=== PATIENT | female | born 1990 | race Caucasian/White ===

== ENCOUNTER → 2019-09-12 14:19 | Outpatient (CLI) | payer OTHER, MEDICAID, SELFPAY ==
--- NOTE | 2019-09-12 | DI.US.S_ITS ---
PROCEDURE: US OB >= 14 WEEKS FETUS INDICATIONS: 20 WEEK ANATOMY SCAN OUTSIDE/PRIOR DATING DATA: Last menstrual period (LMP): 04/12/19. LMP-based estimated date of delivery (SELMA): 01/17/20. First dating scan (date and location): 09/12/19. Estimated date of delivery (SELMA) from first dating scan: 01/13/20. TECHNIQUE: Real-time scanning was performed of the fetus, with image documentation and biometric measurements. COMPARISON: None. FINDINGS: General: A single living intrauterine gestation is present. Presentation: Variable Placenta: Placental position is anterior, without previa. Amniotic fluid index: 17.4 cm, normal range is 5-24 cm. heart rate: 158 beats per minute. Maternal cervical canal: 4.8 cm, closed. biometrics: Biparietal diameter: 5.6 cm, 23 weeks 0 days Head circumference: 20.7 cm, 22 weeks 5 days Abdominal circumference: 17.5 cm, 22 weeks 3 days Femur length: 3.8 cm, 22 weeks 0 days Estimated gestational age from LMP: 21 weeks 6 days Composite gestational age from present scan: 21 weeks 3 days Estimated weight and percentile: 494 g (68 percentile) Anatomic survey: Neuro: Ventricles are non-dilated at less than 10 mm. Cisterna magna is normal at 3-11 mm. Cerebellum is normal in size and morphology. Nuchal skin fold: Normal at less than 6 mm between 14-21 weeks gestational age. Face: Nose and lips are within normal limits. However, the facial profile was not well seen to positioning. Spine: No evidence for spina bifida. Heart: 4-chambered heart is present, with normal ventricular outflow tracts. Diaphragm: Diaphragm is intact. Stomach: Left-sided stomach is present. Kidneys: No hydronephrosis. Normal is less than 5 mm in 2nd trimester, less than 7 mm in 3rd trimester. Cord: 3-vessel cord has orthotopic insertion. Bladder: Normal in size. Extremities: All 4 extremities identified. IMPRESSION: 1. Single live intrauterine at 22 weeks 3 days (sonographic SELMA 01/13/20) is concordant with the LMP due dates. 2. No anatomic abnormalities are evident. However, please note that the facial profile was not adequately seen. The need for followup imaging in 2-4 weeks may be determined clinically. Dictated by: David Chong M.D. on 09/12/2019 at 16:00 Approved by: David Chong M.D. on 09/12/2019 at 16:03
== END ==
PROVIDERS: Referring Provider Midwife; Visit Provider Midwife
DX: Z36.89 Encounter for other specified antenatal screening (principal); Z3A.22 22 weeks gestation of pregnancy
CPT/HCPCS: 76811

== ENCOUNTER → 2019-10-05 14:21 | Outpatient (CLI) | payer OTHER, MEDICAID, SELFPAY ==
[2019-10-05 16:17] LABS: Free T3, Triiodothyronine Free 2.84 pg/mL (2.77-5.27); Free T4, Direct Thyroxine 0.69 ng/dL (0.78-2.19)
[2019-10-05 16:31] LABS: Thyroid Stimulating Hormone 3.03 uIU/mL (0.47-4.68)
== END ==
PROVIDERS: Referring Provider Family Medicine; Visit Provider Family Medicine
DX: O99.280 Endocrine, nutritional and metabolic diseases complicating pregnancy, unspecified trimester (principal); E03.9 Hypothyroidism, unspecified
CPT/HCPCS: 36415; 84439; 84443; 84481

== ENCOUNTER → 2019-11-03 09:39 | Outpatient (CLI) | payer OTHER, MEDICAID, SELFPAY ==
[2019-11-03 12:15] LABS: TSH w/ Reflex to FT4 2.07 uIU/mL (0.47-4.68)
== END ==
PROVIDERS: Referring Provider Family Medicine; Visit Provider Family Medicine
DX: O99.280 Endocrine, nutritional and metabolic diseases complicating pregnancy, unspecified trimester (principal); E03.9 Hypothyroidism, unspecified
CPT/HCPCS: 36415; 84443

== ENCOUNTER → 2019-12-27 14:05 | Outpatient (CLI) | payer OTHER, MEDICAID, SELFPAY ==
[2019-12-27 15:50] LABS: TSH w/ Reflex to FT4 2.37 uIU/mL (0.47-4.68)
== END ==
PROVIDERS: PCP Family Medicine; Referring Provider Family Medicine; Visit Provider Family Medicine
DX: E03.9 Hypothyroidism, unspecified (principal); O99.280 Endocrine, nutritional and metabolic diseases complicating pregnancy, unspecified trimester
CPT/HCPCS: 36415; 84443

== ENCOUNTER → 2020-05-24 12:22 | Outpatient (CLI) | payer OTHER, SELFPAY ==
[2020-05-24 14:18] LABS: Free T3, Triiodothyronine Free 3.37 pg/mL (2.77-5.27); Free T4, Direct Thyroxine 0.99 ng/dL (0.78-2.19)
[2020-05-24 14:32] LABS: Thyroid Stimulating Hormone 3.36 uIU/mL (0.47-4.68)
== END ==
PROVIDERS: PCP Family Medicine; Referring Provider Family Medicine; Visit Provider Family Medicine
DX: Z13.29 Encounter for screening for other suspected endocrine disorder (principal)
CPT/HCPCS: 36415; 84439; 84443; 84481

== ENCOUNTER → 2021-05-16 14:36 | Outpatient (CLI) | payer OTHER, MEDICAID, SELFPAY ==
--- NOTE | 2021-05-16 | DI.US.S_ITS ---
PROCEDURE: US OB >= 14 WEEKS FETUS INDICATIONS: 20 WEEK ANATOMY SCAN OUTSIDE/PRIOR DATING DATA: Last menstrual period (LMP): 12/01/2020 LMP-based estimated date of delivery (SELMA): 09/07/2021. First dating scan (date and location): 05/16/2021. Estimated date of delivery (SELMA) from first dating scan: 09/18/2021. The calculations are made using the ultrasound SELMA of 09/18/2021. TECHNIQUE: Real-time scanning was performed of the fetus, with image documentation and biometric measurements. COMPARISON: None. FINDINGS: General: A single living intrauterine gestation is present. Presentation: Breech. Placenta: Placental position is fundal , without previa. Amniotic fluid index: 14.7 cm, normal range is 5-24 cm. heart rate: 165 beats per minute. Maternal cervical canal: 4.1 cm long. Normal lower limit is 2.5 cm. biometrics: Biparietal diameter: 21 weeks 5 days Head circumference: 21 weeks 4 days Abdominal circumference: 23 weeks 3 days Femur length: 21 weeks 6 days Clinically estimated gestational age by LMP: 23 weeks 5 days Composite gestational age from present scan: 22 weeks 1 day Estimated weight and percentile: 515 g Anatomic survey: Neuro: Ventricles are non-dilated at less than 10 mm. Cisterna magna is normal at 3-11 mm. Cerebellum is normal in size and morphology. Nuchal skin fold: Not evaluated. Face: Nose and lips are normal and facial profile not well seen.. Spine: Suboptimally visualized. Heart: Suboptimally visualized. Diaphragm: Diaphragm is intact. Stomach: Left-sided stomach is present. Kidneys: Bilateral pyelectasis with the right renal pelvis measuring up to 10.4 mm and the left 7.2 mm. Cord: 3-vessel cord has orthotopic insertion. Marginal cord insertion site roughly 1.8 cm from the placental edge. Bladder: Normal in size. Extremities: All 4 extremities identified. IMPRESSION: 1. 22 week 1 day single living IUP corresponding to ultrasound SELMA of 09/18/2021. 2. anatomic survey as above. Follow-up recommended. 3. Bilateral renal pyelectasis which can be reassessed on follow-up examination. 4. Marginal placental cord insertion site. We strive to produce accurate, complete, and clear reports of imaging services. To assist us in improving patient care, this report was composed using standard report templates and voice recognition software. Therefore, it may contain abnormal punctuation, insertions and/or omissions. Occasional wrong-word or sound-alike substitutions may occur. Though we review the report and make efforts to correct it, we do recommend that the report be read carefully in proper context to recognize any text inaccuracies. Dictated by: Leonel MERA Interpreted: Dione Burton MD on 05/16/2021 at 16:21 Transcribed by: BRET on 05/16/2021 at 16:25 Approved by: Dione Burton M.D. on 05/16/2021 at 17:48
== END ==
PROVIDERS: PCP Family Medicine; Referring Provider Nurse Practitioner Obstetrics & Gynecology; Visit Provider Nurse Practitioner Obstetrics & Gynecology
DX: Z36.3 Encounter for antenatal screening for malformations (principal); Z3A.21 21 weeks gestation of pregnancy
CPT/HCPCS: 76811

== ENCOUNTER 2021-06-15 09:10 | Emergency (ER) | payer OTHER, MEDICAID, SELFPAY ==
--- NOTE | 2021-06-15 09:19 | DI.RAD.S_ITS ---
PROCEDURE: XR ANKLE RT MIN 3V INDICATIONS: rolled right ankle, pain w/ weight bearing. TECHNIQUE: 3 views of the ankle were acquired. COMPARISON: None. FINDINGS: Bones: No fractures or dislocations. Ankle mortise is normally aligned. No suspicious bony lesions. Soft tissues: No tibiotalar joint effusion. Achilles tendon appears normal. Lateral soft tissue swelling IMPRESSION: Soft tissue swelling without fracture or foreign body Approved by: Denny Bray M.D. on 06/15/2021 at 9:05
[2021-06-15 09:23] VITALS: BP 134/71; PULSE 108; RESP 18; TEMP 36.9; O2SAT 98; BMI 32.1
--- NOTE | 2021-06-15 09:28 | ED.LOWEXIN ---
HPI - Extremity Injury (Lower) General Chief Complaint: Extremity Injury, Lower Stated Complaint: Rolled right ankle, fell Time Seen by Provider: 06/15/21 09:22 History of Present Illness HPI Narrative: Patient is a 30-year-old female currently 28weeks presenting with right ankle pain. She says she rolled it last night. She is able to walk but it is tender laterally. She took Tylenol with mild relief. But not taken any today. No knee pain or other injury. Related Data Previous Rx's Medication Instructions Recorded levothyroxine 100 mcg tablet 100 mcg PO DAILY #30 tab 04/18/21 Allergies Allergy/AdvReac Type Severity Reaction Status Date / Time No Known Drug Allergies Allergy Verified 09/05/19 09:38 Review of Systems Review of Systems Narrative: GENERAL: Denies chills,fever HEENT: Denies throat pain RESPIRATORY: Denies dyspnea, cough, wheezing CARDIOVASCULAR: Denies chest pain, palpitations GASTROINTESTINAL: Denies nausea, vomiting MUSCULOSKELETAL: See HPI SKIN: No rash, no laceration, no pruritus NEUROLOGIC: Denies weakness, dizziness, headache, numbness 8 point review of systems is negative except for those stated above and HPI Patient History Medical History Acne (~2003) Chicken pox (~1997) Hypothyroidism affecting (~2019) Family History Mother Skin cancer Sister Hypertension Mental health problem Stroke Social History marital status: household members: spouse occupational status: unemployed Smoking Status: Never smoker alcohol intake: never substance use type: does not use Smoking Status: Never smoker Exam Initial Vital Signs Initial Vital Signs: Vital Signs Temperature 98.4 F 06/15/21 09:23 Pulse Rate 108 H 06/15/21 09:23 Respiratory Rate 18 06/15/21 09:23 Blood Pressure 134/71 06/15/21 09:23 Pulse Oximetry 98 06/15/21 09:23 GENERAL: Well-appearing, well-nourished and in no acute distress. CARDIOVASCULAR: peripheral pulses in tact, cap refill <2 sec RESPIRATORY: No respiratory distress, speaks in full sentences without difficulty EXTREMITIES: Normal range of motion, no clubbing or edema. Neurovascularly intact Right lower extremity mild lateral malleoli swelling slightly tender to touch foot is stable distal P a pulse intact Achilles tendon intact knee is stable NEUROLOGICAL: Cranial nerves II through XII grossly intact. Normal gait and speech. SKIN: Warm, dry, no petechiae, no rashes or lesions. Course Orders Ordered: ED Orders 06/15/21 09:19 XR ankle RT min 3V Stat Discontinued Medications Acetaminophen (Acetaminophen 325 Mg Tablet) 975 mg PO NOW ONE Stop: 06/15/21 09:57 Vital Signs Vital signs: Vital Signs - 8 hr 06/15/21 09:23 Temperature 98.4 F Pulse Rate 108 H Respiratory Rate 18 Blood Pressure 134/71 Pulse Oximetry 98 MDM - Extremity Injury (Lower) Imaging Data Extremity x-ray #1: Radiologist's Impression: PROCEDURE:? XR ANKLE RT MIN 3V ? INDICATIONS:? rolled right ankle, pain w/ weight bearing. ? TECHNIQUE:? 3 views of the ankle were acquired.? ? COMPARISON:? None. ? FINDINGS:? ? Bones:? No fractures or dislocations.? Ankle mortise is normally aligned.? No suspicious bony lesions.? ? Soft tissues:? No tibiotalar joint effusion.? Achilles tendon appears normal.? Lateral soft tissue swelling ? ? IMPRESSION:? Soft tissue swelling without fracture or foreign body ? Approved by: Denny Bray M.D. on 06/15/2021 at 9:05? Discharge Plan Departure Patient Disposition: Home Clinical Impression: Right ankle sprain Instructions: DI for Ankle Sprain Activity Restrictions/Additional Instructions: *You have been diagnosed with right ankle sprain *What to do: Elevate and ice. Use crutches as needed *Continue to take medications as directed Tylenol 1000 mg every 6 hours *Follow up with your primary care provider in 2-3 days or call [phone] *Return to ER if you should have increased pain swelling inability to walk or any new, worsening or concerning symptoms Prescriptions: No Action levothyroxine 100 mcg tablet 100 mcg PO DAILY Qty: 30 5RF Referrals: Elly Angulo DO [Primary Care Provider] -
[2021-06-15] MEDS: ACETAMINOPHEN 325 MG TABLET 975 MG PO (10:35)
[2021-06-15 10:49] VITALS: BP 125/68; PULSE 85; RESP 18; O2SAT 98
== END 2021-06-15 10:52 | disposition home or self-care (01) ==
PROVIDERS: Emergency Provider Emergency Medicine; PCP Family Medicine
DX: O26.893 Other specified pregnancy related conditions, third trimester (principal); S93.401A Sprain of unspecified ligament of right ankle, initial encounter; X50.1XXA Overexertion from prolonged static or awkward postures, initial encounter
CPT/HCPCS: 73610; 99283; 99284

== ENCOUNTER 2022-01-02 12:18 | Emergency (ER) | payer OTHER, MEDICAID, SELFPAY ==
[2022-01-02 12:29] VITALS: BP 135/79; PULSE 89; RESP 15; TEMP 36.8; O2SAT 99; BMI 30.5
[2022-01-02] MEDS: PROPARACAINE 0.5% OPHTH SOL 1 DROPS EYE-RIGHT (13:31)
[2022-01-02] MEDS: FLUORESCEIN 1 MG STRIP EYE-BOTH (13:32)
--- NOTE | 2022-01-02 13:59 | ED_ITS ---
HPI - General Adult General Chief complaint: Eye Problems Stated complaint: Right eye irritation/Pt states impaired vision Time Seen by Provider: 01/02/22 12:46 Source: patient Mode of arrival: Ambulatory History of Present Illness HPI narrative: Patient is a 31-year-old female. A couple days ago she started noticing some irritation in her right eye with some redness and some discomfort when she went from areas of light to dark and dark to light. That discomfort with light change has seem to improve however earlier today she started noticing some decreased vision in her right eye. It is not painful. There is no foreign body sensation. She denies any other symptoms to include headache or sore throat or ear pain or runny nose. She is not tried anything for her symptoms. She does not wear corrective lenses. No prior eye surgeries. She went to an outside walk-in clinic and was sent to the emergency department for evaluation. Related Data Previous Rx's Medication Instructions Recorded levothyroxine 125 mcg tablet 125 mcg PO DAILY #30 tabs 06/25/21 Allergies Allergy/AdvReac Type Severity Reaction Status Date / Time No Known Drug Allergies Allergy Verified 01/02/22 12:29 Review of Systems Constitutional Constitutional: Reports as per HPI and Reports system reviewed and no additional complaints, except as documented Eyes Eyes: Reports as per HPI and Reports system reviewed and no additional complaints, except as documented ENT Ears, Nose, Mouth, and Throat: Reports system reviewed and no additional complaints, except as documented and Reports as per HPI Integumentary/Breasts Skin/Breast: Reports system reviewed and no additional complaints, except as documented Neurologic Neurologic: Reports system reviewed and no additional complaints, except as documented Patient History Medical History Acne (~2003) Chicken pox (~1997) Hypothyroidism affecting (~2019) Family History Mother Skin cancer Sister Hypertension Mental health problem Stroke Social History marital status: household members: spouse occupational status: unemployed Smoking Status: Never smoker alcohol intake: never substance use type: does not use Smoking Status: Never smoker alcohol intake frequency: holidays/special occasions only Substance Use Type: does not use Exam Initial Vital Signs Initial Vital Signs: Vital Signs Temperature 98.2 F 01/02/22 12:29 Pulse Rate 89 01/02/22 12:29 Respiratory Rate 15 01/02/22 12:29 Blood Pressure 135/79 01/02/22 12:29 Pulse Oximetry 99 01/02/22 12:29 Oxygen Delivery Method 01/02/22 12:29 Const General: cooperative, healthy appearing, comfortable and well developed [facility] Head: normal to inspection and normocephalic Ears: hearing grossly normal bilaterally and TM's normal bilaterally Face and sinus: normal facial exam Mouth: oral mucosae normal Throat: posterior oropharynx normal Eyes Other: Visual acuity right eye 20 70. Visual acuity left eye 20 30. Pupils equal round reactive. No foreign body noted in the right eye with fluorescein staining. There is some conjunctival injection on the right. Interocular pressure right eye 25. Interocular pressure left eye 14. Resp Effort & Inspection: normal respiratory effort Auscultation: clear to auscultation bilaterally Cardio Rate: regular rate Skin General: no rashes or lesions noted Neuro General: patient alert, patient awake, patient oriented x3 and moves all extremities Cognition: normal cognition Speech: speech normal Extrem General: normal to inspection Course Orders Ordered: ED Orders 01/02/22 14:30 Basic Metabolic Panel Stat C-Reactive Protein Quant Stat Complete Blood Count AUTO DIFF Stat Erythrocyte Sedimentation Rate Stat HLA B27 Stat Test Serum,Qual Stat Thyroid Stimulating Hormone Stat Discontinued Medications Fluorescein Sodium (Fluorescein 1 Mg Strip) 1 mg EYE-BOTH NOW ONE Stop: 01/02/22 12:48 Last Admin: 01/02/22 13:32 Dose: 1 mg Documented By: AT Proparacaine HCl (Proparacaine 0.5% Ophth Sandra) 1 drops EYE-RIGHT NOW ONE Stop: 01/02/22 12:48 Last Admin: 01/02/22 13:31 Dose: 1 drop Documented By: AT Vital Signs Vital signs: Vital Signs - 8 hr 01/02/22 12:29 01/02/22 14:58 Temperature 98.2 F Pulse Rate 89 90 Respiratory Rate 15 16 Blood Pressure 135/79 132/84 Pulse Oximetry 99 99 Oxygen Delivery Method Room Air Room Air Medical Decision Making Lab Data Lab results reviewed: Yes I reviewed the patient's lab results. Result diagrams: 01/02/22 14:30 01/02/22 14:30 Labs: Lab Results 01/02/22 Range/Units 14:30 WBC 7.1 (4.5-11.0) X10^3/uL RBC 4.37 (4.0-5.2) X10^6/uL Hgb 13.1 (12.0-16.0) g/dL Hct 39.2 (36-46) % MCV 89.8 (80-100) fL MCH 30.0 (26-34) PG MCHC 33.4 (30-36) % RDW 13.3 (11.6-14.8) % Plt Count 271 (150-400) X10^3/uL Neut % (Auto) 70.3 (50-75) % Lymph % (Auto) 25.8 (25-40) % [place] % (Auto) 2.7 L (3-14) % Eos % (Auto) 0.7 L (2-4) % Baso % (Auto) 0.5 (0-2) % Neut # (Auto) 5000 (7395-0780) /uL Lymph # (Auto) 1800 (0895-9898) /uL [place] # (Auto) 200 (0-900) /uL Eos # (Auto) 100 (0-450) /uL Baso # (Auto) 0 (0-100) /uL MDM Narrative Medical decision making narrative: Patient does have somewhat of a cloudy appearance of the right eye compared to the left. Pressure is also slightly elevated. She does not have any findings that are concerning for orbital cellulitis. Discussed the case with Dr. Bailey with ophthalmology who has concern for uveitis. The patient denies any trauma. Plan will be is to order labs here in the emergency department and then discharge patient from the emergency department over to the eye clinic for further evaluation. I discussed this with the patient. She understands the follow-up with this. She understands that there are labs pending at the time of her discharge and she will need to talk with Ophthalmology and also her primary doctor regarding this. She was given return precautions. Treatment will be initiated after evaluation by Ophthalmology. Patient expressed understanding and agreement plan. Discharge Plan Departure Patient Disposition: Home Clinical Impression: Uveitis Instructions: DI for Anterior Uveitis Activity Restrictions/Additional Instructions: Upon discharge from the emergency department your to go over to the [facility] which is located here in the hospital. I discussed your case with Dr. Bailey and she will see you in clinic. The blood that was drawn here in the emergency department will not be resulted by the time your discharged. You do need to contact your primary doctor for a follow-up as well. Return to the emergency department for any new or worsening symptoms. Prescriptions: No Action levothyroxine 125 mcg tablet 125 mcg PO DAILY Qty: 30 3RF Referrals: Elly Angulo DO [Primary Care Provider] - Visit Report Forms: Patient Portal/API
[2022-01-02 14:48] LABS: Add Manual Diff / Slide Review NO; Basophils Absolute Auto 0 /uL (0-100); Basophils Percent Auto 0.5 % (0-2); Eosinophils Absolute Auto 100 /uL (0-450); Eosinophils Percent Auto 0.7 % (2-4); Hematocrit 39.2 % (36-46); Hemoglobin 13.1 g/dL (12.0-16.0); Lymphocytes Absolute Auto 1800 /uL (1100-4500); Lymphocytes Percent Auto 25.8 % (25-40); Mean Corpuscular HGB Conc 33.4 % (30-36); Mean Corpuscular Volume 89.8 fL (80-100); Monocytes Absolute Auto 200 /uL (0-900); Monocytes Percent Auto 2.7 % (3-14); Neutrophils Absolute Auto 5000 /uL (1500-7000); Neutrophils Percent Auto 70.3 % (50-75); Platelet Count 271 X10^3/uL (150-400); Red Blood Cell Count 4.37 X10^6/uL (4.0-5.2); Red Cell Distribution Width 13.3 % (11.6-14.8); White Blood Cell Count 7.1 X10^3/uL (4.5-11.0)
[2022-01-02 14:58] VITALS: BP 132/84; PULSE 90; RESP 16; O2SAT 99
[2022-01-02 15:05] LABS: BUN Creatinine Ratio 21.7 (6-22); Blood Urea Nitrogen 15 mg/dL (7-17); C-Reactive Protein Quant 1.1 mg/dL (<1.0); Calcium 9.6 mg/dL (8.4-10.2); Carbon Dioxide 25 mmol/L (22-32); Chloride 107 mmol/L (98-107); Estimated Glomerular Filt Rate > 60 mL/min (>60); Glucose 108 mg/dL (70-100); HEMOLYSIS < 15 (0-50); Sodium 142 mmol/L (137-145)
[2022-01-02 15:15] LABS: Erythrocyte Sedimentation Rate 19 MM/HR (0-20)
[2022-01-02 15:21] LABS: Pregnancy Test Serum,Qual Negative (Negative)
[2022-01-02 15:53] LABS: Thyroid Stimulating Hormone 3.84 uIU/mL (0.47-4.68)
[2022-01-04 17:31] LABS: ANA Screen, IFA Positive (.)
[2022-01-13 17:53] LABS: HLA B27 Negative (.)
== END 2022-01-02 14:30 | disposition home or self-care (01) ==
PROVIDERS: Emergency Provider Emergency Medicine; PCP Family Medicine
DX: H20.9 Unspecified iridocyclitis (principal)
CPT/HCPCS: 36415; 80048; 81374; 84443; 84703; 85025; 85651; 86038; 86140; 99283

== ENCOUNTER 2023-05-22 15:17 | Observation (INO) | payer OTHER, MEDICAID, SELFPAY ==
[2023-05-22 16:31] LABS: Add Manual Diff / Slide Review NO; Basophils Absolute Auto 100 /uL (0-100); Basophils Percent Auto 0.7 % (0-2); Eosinophils Absolute Auto 0 /uL (0-450); Eosinophils Percent Auto 0.5 % (2-4); Hematocrit 35.9 % (36-46); Hemoglobin 12.4 g/dL (12.0-16.0); Lymphocytes Absolute Auto 2100 /uL (1100-4500); Lymphocytes Percent Auto 22.7 % (25-40); Mean Corpuscular HGB Conc 34.5 % (30-36); Mean Corpuscular Hemoglobin 31.8 PG (26-34); Mean Corpuscular Volume 92.1 fL (80-100); Monocytes Absolute Auto 400 /uL (0-900); Monocytes Percent Auto 4.3 % (3-14); Neutrophils Absolute Auto 6700 /uL (1500-7000); Neutrophils Percent Auto 71.8 % (50-75); Platelet Count 147 X10^3/uL (150-400); Red Cell Distribution Width 14.1 % (11.6-14.8); White Blood Cell Count 9.3 X10^3/uL (4.5-11.0)
[2023-05-22 16:45] LABS: Alanine Aminotransferase 16 IU/L (<35); Albumin 3.3 g/dL (3.5-5.0); Alkaline Phosphatase 111 U/L (38-126); Aspartate Aminotransferase 23 IU/L (14-36); BUN Creatinine Ratio 25.9 (6-22); Bilirubin Total 0.3 mg/dL (0.2-1.3); Blood Urea Nitrogen 15 mg/dL (7-17); Calcium 9.4 mg/dL (8.4-10.2); Carbon Dioxide 20 mmol/L (22-32); Chloride 108 mmol/L (98-107); Estimated Glomerular Filt Rate > 60 mL/min (>60); Globulin 3.2 g/dL (1.7-4.1); Glucose 101 mg/dL (70-100); HEMOLYSIS < 15 (0-50); Sodium 134 mmol/L (137-145); Total Protein 6.5 g/dL (6.3-8.2)
[2023-05-22 17:08] LABS: Creatinine Urine Random 121.6 mg/dL; Protein (Total) Urine Random 8 mg/dL (0-12); Protein Creatinine Ratio Urine 0.06 GRAM/24H
--- NOTE | 2023-05-22 17:29 | P.TNLD_ITS ---
Visit Information Visit Information Date of evaluation: 05/22/23 Primary OB Provider: Tika Covington On-call OB Provider: Lula Zapata Reason for Evaluation: Yes non-stress test non-stress test reason: hypertension/pre-eclampsia Comments/Additional reasons for admission: 32YO @ [id number] based on 10wk US who presents for evaluation of elevated BP in clinic. Thinks she has white coat HTN which cause her to be induced with her last . +FM. no cramping, VB or LOF. No headache, vision changes, RUQ pain or increased edema. Uncomplicated care with CNM, planning a home . Hypothyroid- well managed with levothyroxine. Vital Signs Vital Signs: Serial BPs: 140/92, 133/88, 129/85, 134/88, 129/85, 138/86 HR 83, T 36.7C Temporal PFSH Medical History Acne (~2003) Chicken pox (~1997) Hypothyroidism affecting (~2019) Family History Mother Skin cancer Sister Hypertension Mental health problem Stroke Social History marital status: household members: spouse occupational status: unemployed Smoking Status: Never smoker alcohol intake: never substance use type: does not use Review of Systems Review of Systems ROS: Yes All systems reviewed with the patient and are negative except as otherwise documented Exam Vital Signs (past 8 hours): see above Presentation: vertex Objective Labs 05/22/23 16:20 05/22/23 16:20 Labs: Laboratory Results - last 24 hr 05/22/23 05/22/23 16:05 16:20 WBC 9.3 RBC 3.90 L Hgb 12.4 Hct 35.9 L MCV 92.1 MCH 31.8 MCHC 34.5 RDW 14.1 Plt Count 147 L Neut % (Auto) 71.8 Lymph % (Auto) 22.7 L [place] % (Auto) 4.3 Eos % (Auto) 0.5 L Baso % (Auto) 0.7 Neut # (Auto) 6700 Lymph # (Auto) 2100 [place] # (Auto) 400 Eos # (Auto) 0 Baso # (Auto) 100 Sodium 134 L Potassium 4.0 Chloride 108 H Carbon Dioxide 20 L BUN 15 Creatinine 0.58 Estimated GFR > 60 BUN/Creatinine Ratio 25.9 H Glucose 101 H Calcium 9.4 Total Bilirubin 0.3 AST 23 ALT 16 Alkaline Phosphatase 111 Total Protein 6.5 Albumin 3.3 L Globulin 3.2 Albumin/Globulin Ratio 1.0 U Random Total Protein 8 Urine Creatinine 121.6 Protein/Creatinin Ratio 0.06 Blood Type A Negative Evaluation Evaluation Baseline heart rate: 135 Variability: Moderate (11-25) monitor accelerations: Present Monitor Decelerations: Absent Contraction Frequency (minutes): 0 Category of Tracing: Reactive Cervical dilation (cm): 4 Cervical effacement (%): 50 station: -4 Diagnosis, Plan/Disposition Final Diagnosis (1) Elevated blood pressure reading without diagnosis of hypertension: Status: Acute Plan/Disposition Plan: Discharge to home with routine labor precautions and reviewed warning sx of preeclampsia with severe features. Patient to be followed closely by homebirth CNM with plan to repeat BP in 1-2 days. OB Disposition: home
== END 2023-05-22 17:35 | disposition home or self-care (01) ==
LOC: LABOR 15:19
PROVIDERS: Admitting Provider Nurse Practitioner Obstetrics & Gynecology; PCP Family Medicine; Referring Provider Nurse Practitioner Obstetrics & Gynecology; Visit Provider Nurse Practitioner Obstetrics & Gynecology
DX: O26.893 Other specified pregnancy related conditions, third trimester (principal); R03.0 Elevated blood-pressure reading, without diagnosis of hypertension; Z3A.40 40 weeks gestation of pregnancy
CPT/HCPCS: 59025; 80053; 82570; 84156; 85025; 86900; 86901; G0378; G0379